=== PATIENT | female | born 1980 | race Caucasian/White ===

== ENCOUNTER 2020-06-08 21:17 | Emergency (ER) | payer MEDICAID ==
[~2020-06-08] VITALS: Ht 157.5 cm; Wt 72.6 kg
[2020-06-08 21:19] VITALS: Ht 157.5 cm; Wt 72.6 kg
[2020-06-08 23:11] VITALS: BP 117/65
== END 2020-06-08 23:11 | disposition home or self-care (01) ==
LOC: ED 21:17
DX: U07.1 COVID-19 (principal); J12.82 Pneumonia due to coronavirus disease 2019

== ENCOUNTER 2020-06-16 13:03 | Emergency (ER) | payer MEDICAID, SELFPAY ==
[~2020-06-16] VITALS: Ht 157.5 cm; Wt 68.0 kg
[2020-06-16 13:05] VITALS: BP 129/80; Ht 157.5 cm; Wt 68.0 kg
== END 2020-06-16 13:50 | disposition home or self-care (01) ==
LOC: ED 13:03
DX: R06.02 Shortness of breath (principal); R05 Cough; Z20.828 Contact with and (suspected) exposure to other viral communicable diseases